=== PATIENT | female | born 1970 | race Caucasian/White ===

== ENCOUNTER 2020-04-10 12:59 | Emergency (ER) | payer SELFPAY ==
[~2020-04-10] VITALS: Ht 167.6 cm; Wt 75.0 kg
[2020-04-10 13:03] VITALS: BP 154/89; TEMP 97.7
[2020-04-10 14:00] VITALS: PULSE 80
== END 2020-04-10 14:00 | disposition home or self-care (01) ==
LOC: COL.ER 12:59
DX: Z77.098 Contact with and (suspected) exposure to other hazardous, chiefly nonmedicinal, chemicals (principal)

== ENCOUNTER 2021-02-07 19:32 | Emergency (ER) | payer OTHER ==
[~2021-02-07] VITALS: Ht 167.6 cm; Wt 85.0 kg
[2021-02-07 19:52] VITALS: BP 157/87; TEMP 97.9
[2021-02-07 23:34] VITALS: PULSE 70
== END 2021-02-07 23:34 | disposition home or self-care (01) ==
LOC: COL.ER 19:32
DX: S86.911A Strain of unspecified muscle(s) and tendon(s) at lower leg level, right leg, initial encounter (principal); S39.012A Strain of muscle, fascia and tendon of lower back, initial encounter; S90.31XA Contusion of right foot, initial encounter; S09.90XA Unspecified injury of head, initial encounter; V43.53XA Car driver injured in collision with pick-up truck in traffic accident, initial encounter